=== PATIENT | female | born 1975 | race Asian ===

== ENCOUNTER 2017-10-05 20:24 | Emergency (ER) | payer SELFPAY ==
[~2017-10-05] VITALS: Ht 162.6 cm; Wt 56.7 kg
[2017-10-05] MEDS ORDERED: BIRTH CONTROL (20:37)
[2017-10-05 21:03] LABS: BASOPHILS ABSOLUTE AUTO 0.16 K/mm3 (0.00-0.23); BASOPHILS PERCENT AUTO 2 % (0-2); EOSINOPHILS ABSOLUTE AUTO 0.31 K/mm3 (0.00-0.68); EOSINOPHILS PERCENT AUTO 3 % (0-6); Hematocrit 38.8 % (33.0-51.0); Hemoglobin 13.2 g/dL (11.5-16.0); IMMATURE GRAN ABSOLUTE AUTO 0.03 K/mm3 (0.00-0.10); IMMATURE GRAN PERCENT AUTO 0 % (0-1); LYMPHOCYTES ABSOLUTE AUTO 2.03 K/mm3 (0.84-5.20); LYMPHOCYTES PERCENT AUTO 21 % (21-46); MONOCYTES ABSOLUTE AUTO 0.36 K/mm3 (0.16-1.47); MONOCYTES PERCENT AUTO 4 % (4-13); Mean Corpuscular HGB 28.4 pg (26.0-34.0); Mean Corpuscular Volume 84 fL (80-100); NEUTROPHILS ABSOLUTE AUTO 7.02 K/mm3 (1.96-9.15); NEUTROPHILS PERCENT AUTO 71 % (41-73); Platelet Count 288 K/mm3 (150-400); RDW Coefficient Variation 13.1 % (11.7-14.2); RDW Standard Deviation 39.8 fL (35.1-46.3); Red Blood Cell Count 4.64 M/mm3 (3.80-5.20); White Blood Cell Count 9.91 K/mm3 (4.00-11.30)
[2017-10-05 21:26] LABS: Alanine Aminotransfer (ALT/SGP 23 U/L (12-78); Albumin, Blood 3.8 g/dL (3.4-5.0); Alk Phos 64 U/L (50-136); Anion Gap 9 mmol/L (6-16); Aspartate Aminotrans (AST/SGOT 22 U/L (12-37); Bilirubin, Total 0.2 mg/dL (0.1-1.0); Blood Urea Nitrogen 16 mg/dL (8-24); Bun/Creatinine Ratio 28.9 (12.0-20.0); CO2, Blood 24 mmol/L (21-32); Calcium, Blood 8.4 mg/dL (8.5-10.1); Chloride, Blood 109 mmol/L (98-108); Creatinine, Blood 0.55 mg/dL (0.40-1.00); Free Thyroxine 1.04 ng/dL (0.70-1.60); Globulin, Blood 3.8 g/dL (2.2-4.0); Glomerular Filtration Rate >60 (60-); Glucose, Blood 140 mg/dL (70-99); Potassium, Blood 3.3 mmol/L (3.5-5.5); Sodium, Blood 142 mmol/L (136-145); Total Protein, Blood 7.6 g/dL (6.4-8.2); Troponin I <0.015 ng/mL (0.000-0.040)
[2017-10-05 21:29] LABS: Thyroid Stimulating Hormone 0.939 uIU/mL (0.360-4.800); Triiodothyronine, Free 3.08 pg/mL (2.18-3.98)
== END 2017-10-05 22:30 | disposition home or self-care (01) ==
LOC: ER 20:24
PROVIDERS: Emergency Medicine
DX: R00.2 Palpitations (principal); Z88.6 Allergy status to analgesic agent; Z88.1 Allergy status to other antibiotic agents; Z88.8 Allergy status to other drugs, medicaments and biological substances
CPT/HCPCS: 36415; 71046; 80053; 84439; 84443; 84481; 84484; 85025; 85379; 93005; 93010; 99284

== ENCOUNTER 2018-09-21 14:50 | Emergency (ER) | payer OTHER ==
[~2018-09-21 14:50] MED LIST: BIRTH CONTROL
[2018-09-21] MEDS ORDERED: ATEN25 PO (17:15)
[2018-09-21] MEDS ORDERED: Vitamin D2000 UNIT PO (17:15)
[2018-09-21] MEDS ORDERED: EXPECTA PRENAT1 EACH (17:15)
== END 2018-09-21 15:09 | disposition left against medical advice (07) ==
LOC: ER 14:50
DX: Z53.21 Procedure and treatment not carried out due to patient leaving prior to being seen by health care provider (principal)

== ENCOUNTER 2018-09-21 16:23 | Observation (INO) | payer OTHER ==
[~2018-09-21] VITALS: Ht 162.6 cm; Wt 57.7 kg
[2018-09-21] MEDS ORDERED: ATEN25 PO (17:15)
[2018-09-21] MEDS ORDERED: Vitamin D2000 UNIT PO (17:15)
[2018-09-21] MEDS ORDERED: EXPECTA PRENAT1 EACH (17:15)
[2018-09-21 17:24] LABS: BASOPHILS ABSOLUTE AUTO 0.11 K/mm3 (0.00-0.23); BASOPHILS PERCENT AUTO 1 % (0-2); EOSINOPHILS ABSOLUTE AUTO 0.08 K/mm3 (0.00-0.68); EOSINOPHILS PERCENT AUTO 1 % (0-6); Hematocrit 36.7 % (33.0-51.0); Hemoglobin 12.4 g/dL (11.5-16.0); IMMATURE GRAN ABSOLUTE AUTO 0.07 K/mm3 (0.00-0.10); IMMATURE GRAN PERCENT AUTO 1 % (0-1); LYMPHOCYTES ABSOLUTE AUTO 1.28 K/mm3 (0.84-5.20); LYMPHOCYTES PERCENT AUTO 9 % (21-46); MONOCYTES ABSOLUTE AUTO 0.65 K/mm3 (0.16-1.47); MONOCYTES PERCENT AUTO 4 % (4-13); Mean Corpuscular HGB 28.8 pg (26.0-34.0); Mean Corpuscular HGB Conc 33.8 g/dL (31.5-36.5); Mean Corpuscular Volume 85 fL (80-100); Mean Platelet Volume 11.8 fL (9.1-12.4); NEUTROPHILS ABSOLUTE AUTO 12.88 K/mm3 (1.96-9.15); NEUTROPHILS PERCENT AUTO 86 % (41-73); Platelet Count 241 K/mm3 (150-400); RDW Coefficient Variation 13.7 % (11.7-14.2); RDW Standard Deviation 42.3 fL (35.1-46.3); White Blood Cell Count 15.07 K/mm3 (4.00-11.30)
--- NOTE | 2018-09-21 19:39 | NUR ---
FHT DOPPLERED AT 150, FETUS ACTIVE AND MOVEMENTS AUSCULTATED VIA DOPPLER. PT STATES BEING ABLE TO FEEL FETUS MOVE. PT STATES THAT ABDOMEN IS TENDER AT TIMES WITH CRAMPING, AWARE TO CALL RN WITH ANY CHANGES, INCREASED BLEEDING OR QUESTIONS.
--- NOTE | 2018-09-21 21:30 | NUR ---
Pt sleeping, regular respiration at 14.
--- NOTE | 2018-09-22 00:01 | NUR ---
PT STATES THAT HER CARMPING HAS INCREASED SOME BUT NOT BAD BEFORE. WILL LEAVE URINE AND PADS IN BATHROOM FOR RN TO ASSESS, DENIES INCREASE IN BLEEDING. UNDERSTANDS TO CALL WITH ANY CHANGES OR CONCERNS.
--- NOTE | 2018-09-22 07:58 | NUR ---
SMALL DIME SIZED CLOT PASSED DURING VOID
--- NOTE | 2018-09-22 11:30 | NUR ---
PT SLEEPING, DOES NOT WAKE UP WITH RN ENTRANCE INTO ROOM. LUNCH TRY PLACED ON BEDSIDE TABLE.
--- NOTE | 2018-09-22 13:04 | NUR ---
PT UP TO BATHROOM, HAD BOWEL MOVEMENT, NO VOID. STATES NO NEW BLEEDING. DENIES ANY CRAMPING. GOING TO TRY AND SLEEP SOME MORE, WILL CALL RN WHEN UP TO VOID FOR OUTPUT, IF ANY BLEEDING OR CRAMPING AND PRN.
--- NOTE | 2018-09-22 16:39 | NUR ---
MINIMAL AMOUNT OF BLEEDING NOTED. PATIENT STATES MUCH LESS THAN YESTERDAY.
--- NOTE | 2018-09-22 17:05 | NUR ---
PT IN BED EATING DINNER, STATES SHE IS FEELING MUCH BETTER AFTER TYLENOL AND BLEEDING HAS LESSENED TO A PINK TINGE WHEN WIPING. HAS NO COMPLAINTS AT THIS TIME.
--- NOTE | 2018-09-23 07:45 | NUR ---
Pt sleeping soundly.
--- NOTE | 2018-09-23 08:32 | NUR ---
Pt remains asleep, woke when RN entered room. Will check back shortly to see if pt awake.
[2018-09-23] MEDS ORDERED: Percocet 5-3251 EACH PO (10:34)
--- NOTE | 2018-09-23 10:44 | NUR ---
Pt reports she got up to br and to get dressed to d/c home and passed a red clot the size of her thumbnail and had some bloody mucus when she wiped. CNM notified and discharge to be delayed until after 1300.
--- NOTE | 2018-09-23 12:56 | NUR ---
CNM updated about pink tinged urine. Ok to d/c home.
--- NOTE | 2018-09-23 13:15 | NUR ---
No acute changes this shift. IV d/c'd. Printed instructions reviewed w/pt and . Deny questions/concerns. Pt d/c'd home in wheelchair to care of .
== END 2018-09-23 13:15 | disposition home or self-care (01) ==
LOC: OBS 16:23 → BC 16:39
PROVIDERS: ADMIT Nurse Practitioner Obstetrics & Gynecology
DX: O46.92 Antepartum hemorrhage, unspecified, second trimester (principal); Z3A.15 15 weeks gestation of pregnancy; O09.522 Supervision of elderly multigravida, second trimester; O09.812 Supervision of pregnancy resulting from assisted reproductive technology, second trimester; O99.012 Anemia complicating pregnancy, second trimester; D64.9 Anemia, unspecified; O99.282 Endocrine, nutritional and metabolic diseases complicating pregnancy, second trimester; E55.9 Vitamin D deficiency, unspecified; I49.1 Atrial premature depolarization; O99.412 Diseases of the circulatory system complicating pregnancy, second trimester; Z79.899 Other long term (current) drug therapy; Z88.1 Allergy status to other antibiotic agents; Z88.8 Allergy status to other drugs, medicaments and biological substances
CPT/HCPCS: 85025; 86850; 86900; 86901; G0378

== ENCOUNTER 2019-03-03 05:11 | Inpatient (IN) | payer OTHER ==
[~2019-03-03] VITALS: Ht 152.4 cm; Wt 61.8 kg
[~2019-03-03 05:11] MED LIST changes: +ATEN25 PO; +EXPECTA PRENAT1 EACH; +Percocet 5-3251 EACH PO; +Vitamin D2000 UNIT PO
[2019-03-03 05:39] LABS: BASOPHILS ABSOLUTE AUTO 0.13 K/mm3 (0.00-0.23); BASOPHILS PERCENT AUTO 2 % (0-2); EOSINOPHILS ABSOLUTE AUTO 0.11 K/mm3 (0.00-0.68); EOSINOPHILS PERCENT AUTO 1 % (0-6); Hematocrit 37.1 % (33.0-51.0); Hemoglobin 12.4 g/dL (11.5-16.0); IMMATURE GRAN ABSOLUTE AUTO 0.07 K/mm3 (0.00-0.10); IMMATURE GRAN PERCENT AUTO 1 % (0-1); LYMPHOCYTES ABSOLUTE AUTO 2.63 K/mm3 (0.84-5.20); LYMPHOCYTES PERCENT AUTO 32 % (21-46); MONOCYTES ABSOLUTE AUTO 0.45 K/mm3 (0.16-1.47); MONOCYTES PERCENT AUTO 5 % (4-13); Mean Corpuscular HGB Conc 33.4 g/dL (31.5-36.5); Mean Corpuscular Volume 81 fL (80-100); NEUTROPHILS PERCENT AUTO 59 % (41-73); NRBC ABSOLUTE 0.03 K/mm3 (0.00-0.02); NRBC Auto 0.4 /100 WBC (0.0-0.2); Platelet Count 195 K/mm3 (150-400); RDW Coefficient Variation 16.1 % (11.7-14.2); RDW Standard Deviation 45.6 fL (35.1-46.3); Red Blood Cell Count 4.59 M/mm3 (3.80-5.20); White Blood Cell Count 8.29 K/mm3 (4.00-11.30)
--- NOTE | 2019-03-03 09:55 | NUR ---
talha requests pastoral care come down to pray with them. obt susan epperson to call pastoral care
--- NOTE | 2019-03-03 10:06 | NUR ---
Prayer and blessing provided to paul at her request.
[2019-03-04 05:41] LABS: BASOPHILS ABSOLUTE AUTO 0.13 K/mm3 (0.00-0.23); BASOPHILS PERCENT AUTO 1 % (0-2); EOSINOPHILS ABSOLUTE AUTO 0.07 K/mm3 (0.00-0.68); EOSINOPHILS PERCENT AUTO 1 % (0-6); Hematocrit 38.5 % (33.0-51.0); Hemoglobin 12.5 g/dL (11.5-16.0); IMMATURE GRAN ABSOLUTE AUTO 0.09 K/mm3 (0.00-0.10); IMMATURE GRAN PERCENT AUTO 1 % (0-1); LYMPHOCYTES ABSOLUTE AUTO 2.06 K/mm3 (0.84-5.20); LYMPHOCYTES PERCENT AUTO 15 % (21-46); MONOCYTES ABSOLUTE AUTO 0.44 K/mm3 (0.16-1.47); MONOCYTES PERCENT AUTO 3 % (4-13); Mean Corpuscular HGB 27.5 pg (26.0-34.0); Mean Corpuscular HGB Conc 32.5 g/dL (31.5-36.5); NEUTROPHILS ABSOLUTE AUTO 10.75 K/mm3 (1.96-9.15); NEUTROPHILS PERCENT AUTO 79 % (41-73); Platelet Count 178 K/mm3 (150-400); RDW Coefficient Variation 16.4 % (11.7-14.2); RDW Standard Deviation 48.6 fL (35.1-46.3); Red Blood Cell Count 4.54 M/mm3 (3.80-5.20); White Blood Cell Count 13.54 K/mm3 (4.00-11.30)
[2019-03-04 06:13] LABS: Mean Corpuscular Volume 85 fL (80-100); Mean Platelet Volume 12.9 fL (9.1-12.4)
[2019-03-04] MEDS ORDERED: IBUP800 PO (10:11)
== END 2019-03-04 17:29 | disposition home or self-care (01) | DRG 807 ==
LOC: BC 05:11
PROVIDERS: ADMIT Nurse Practitioner Obstetrics & Gynecology
PROC: 10E0XZZ Delivery of Products of Conception, External Approach (ICD-10-PCS; principal; 2019-03-03)
PROC: 3E0S3BZ Introduction of Anesthetic Agent into Epidural Space, Percutaneous Approach (ICD-10-PCS; 2019-03-03)
PROC: 00HU33Z Insertion of Infusion Device into Spinal Canal, Percutaneous Approach (ICD-10-PCS; 2019-03-03)
DX: O43.123 Velamentous insertion of umbilical cord, third trimester (principal); Z37.0 Single live birth; Z3A.39 39 weeks gestation of pregnancy
CPT/HCPCS: 36415; 51702; 85025; J1885; J2001; J2590; J3010; J7120

== ENCOUNTER → 2019-03-06 | Outpatient (CLI) | payer OTHER ==
[~2019-03-06] MED LIST changes: +IBUP800 PO
== END | disposition home or self-care (01) ==
LOC: LAB 14:34 → LAB SHORT 14:34
DX: R30.0 Dysuria (principal)
CPT/HCPCS: 87077; 87086; 87186

== ENCOUNTER → 2022-02-09 | Outpatient (CLI) | payer OTHER ==
[~2022-02-09] MED LIST changes: +CEPH500 PO; +HYDMOR2 PO; +PROM25 PO
== END | disposition home or self-care (01) ==
LOC: LAB 16:00 → LAB SHORT 16:00
DX: M54.50 Low back pain, unspecified (principal)
CPT/HCPCS: 87086

== ENCOUNTER 2022-02-12 19:37 | Inpatient (IN) | payer OTHER ==
[~2022-02-12] VITALS: Ht 162.6 cm; Wt 57.6 kg
[~2022-02-12 19:37] MED LIST changes: -CEPH500 PO; -HYDMOR2 PO; -PROM25 PO
[2022-02-12 20:40] LABS: Source, Urine Clean Catch
[2022-02-12 20:43] LABS: BASOPHILS ABSOLUTE AUTO 0.09 K/mm3 (0.00-0.23); BASOPHILS PERCENT AUTO 1 % (0-2); EOSINOPHILS ABSOLUTE AUTO 0.11 K/mm3 (0.00-0.68); EOSINOPHILS PERCENT AUTO 1 % (0-6); Hematocrit 36.6 % (33.0-51.0); Hemoglobin 12.5 g/dL (11.5-16.0); IMMATURE GRAN ABSOLUTE AUTO 0.11 K/mm3 (0.00-0.10); IMMATURE GRAN PERCENT AUTO 1 % (0-1); LYMPHOCYTES ABSOLUTE AUTO 1.26 K/mm3 (0.84-5.20); LYMPHOCYTES PERCENT AUTO 7 % (21-46); MONOCYTES ABSOLUTE AUTO 0.96 K/mm3 (0.16-1.47); MONOCYTES PERCENT AUTO 6 % (4-13); Mean Corpuscular HGB 29.1 pg (26.0-34.0); Mean Corpuscular HGB Conc 34.2 g/dL (31.5-36.5); Mean Corpuscular Volume 85 fL (80-100); Mean Platelet Volume 9.9 fL (9.1-12.4); NEUTROPHILS ABSOLUTE AUTO 14.59 K/mm3 (1.96-9.15); NEUTROPHILS PERCENT AUTO 85 % (41-73); Platelet Count 481 K/mm3 (150-400); RDW Coefficient Variation 13.4 % (11.7-14.2); RDW Standard Deviation 41.8 fL (35.1-46.3); White Blood Cell Count 17.12 K/mm3 (4.00-11.30)
[2022-02-12 20:44] LABS: Blood, Urine 2+ (Neg); Glucose Qualitative, Urine Neg (Neg); Ketones, Urine 1+ (Neg); Leukocyte Esterase, Urine Neg (Neg); Nitrite, Urine Neg (Neg); Protein, Urine 2+ (Neg); Specific Gravity, Urine 1.025 (1.003-1.022); Urobilinogen, Urine 3+ (Normal)
[2022-02-12 20:49] LABS: Appearance, Urine Hazy (Clear); Bilirubin, Urine 1+ (Neg); Color, Urine Yellow (P-Yellow)
[2022-02-12 20:51] LABS: Amorphous Light (0-Heavy); Bacteria Few /hpf; Hyaline Casts 0-2 /lpf (0-2); Mucus Mod (0-Heavy); Squamous Epithelial Cells Few /hpf (Few); White Blood Cells, Urine 0-2 /hpf (0-5)
[2022-02-12 21:02] LABS: Albumin, Blood 2.7 g/dL (3.4-5.0); Albumin/Globulin Ratio 0.6 (0.8-1.8); Bilirubin, Total 0.3 mg/dL (0.1-1.0); Bun/Creatinine Ratio 17.3 (12.0-20.0); Calcium, Blood 9.2 mg/dL (8.5-10.1); Creatinine, Blood 0.58 mg/dL (0.40-1.00); Globulin, Blood 4.8 g/dL (2.2-4.0); Total Protein, Blood 7.5 g/dL (6.4-8.2)
--- NOTE | 2022-02-13 06:09 | NUR ---
PT ARRIVED TO THE FLOOR AT APPROX 0450. A/O X4, SPOUSE AT BEDSIDE. RN STATED THAT SHE HAD GIVEN PT PAIN MEDICATION AT APPROX 0340, PT REPORTS PAIN AT A 4 AT THIS TIME. ORIENTED TO ROOM AND CALL LIGHT. ADMIT COMPLETE. BLOOD CONSENT SIGNED, AND COVID SWAB DONE. VITAL SIGNS TAKEN. WILL CONTINUE TO MONITOR AND REPORT TO ONCOMING RN.
[2022-02-13 06:41] LABS: SARS-Cov-2 (COVID-19) PCR, MMC NEGATIVE (NEGATIVE)
--- NOTE | 2022-02-13 13:03 | NUR ---
WONDERSISI AT BEDSIDE
--- NOTE | 2022-02-13 16:14 | NUR ---
02/13/22 1614 Raheem Georges PT TO PACU WITH PASCUAL IN PLACE PER . APPROX 100CC CLEAR YELLOW URINE IN BAG UPON TRANSFER
--- NOTE | 2022-02-13 17:57 | NUR ---
POST OP: REPORT RECEIVED FROM DEALER SUPPORT TECHNICIAN KIM. PT TO UNIT AT 1720. PT IS ORIENTED AND DROWSY. AWAKENS TO VOICE AND VERBALIZED ABD PAIN, MEDICATED PER EMAR. SURGICAL SITES ARE CDI, WNL. PT BEDSIDE. WILL CTM AND REPORT TO NOC NICOLE
--- NOTE | 2022-02-14 04:22 | NUR ---
SHIFT SUMMARY PATIENT S/P EX LAP. ABD LAP SITES X3, OPEN TO AIR WITH DERMABOND, C/D/I. PATIENT HAS MILD DISTENTION AND TENDERNESS IN ABD. SCANT AMOUNT OF BLOOD ON MADHAVI PAD. PASCUAL WAS REMOVED THIS AM. TOLERATING PO INTAKE AND DENIES N/V. DENIES PASSING GAS THIS SHIFT. PAIN MANAGED WITH 1MG DILAUDED. RESTING COMFORTABLY AT THIS TIME.VSS, CALL LIGHT IN REACH. REPORT TO DAY RN.
[2022-02-14 04:42] LABS: BASOPHILS ABSOLUTE AUTO 0.03 K/mm3 (0.00-0.23); BASOPHILS PERCENT AUTO 0 % (0-2); EOSINOPHILS PERCENT AUTO 0 % (0-6); Hematocrit 31.4 % (33.0-51.0); Hemoglobin 10.7 g/dL (11.5-16.0); IMMATURE GRAN PERCENT AUTO 1 % (0-1); LYMPHOCYTES ABSOLUTE AUTO 0.67 K/mm3 (0.84-5.20); LYMPHOCYTES PERCENT AUTO 4 % (21-46); MONOCYTES ABSOLUTE AUTO 0.74 K/mm3 (0.16-1.47); MONOCYTES PERCENT AUTO 4 % (4-13); Mean Corpuscular HGB 29.2 pg (26.0-34.0); Mean Corpuscular HGB Conc 34.1 g/dL (31.5-36.5); Mean Corpuscular Volume 86 fL (80-100); Mean Platelet Volume 9.5 fL (9.1-12.4); NEUTROPHILS ABSOLUTE AUTO 16.72 K/mm3 (1.96-9.15); NEUTROPHILS PERCENT AUTO 91 % (41-73); Platelet Count 443 K/mm3 (150-400); RDW Coefficient Variation 13.2 % (11.7-14.2); RDW Standard Deviation 41.7 fL (35.1-46.3); Red Blood Cell Count 3.66 M/mm3 (3.80-5.20); White Blood Cell Count 18.36 K/mm3 (4.00-11.30)
[2022-02-14 05:15] LABS: Calcium, Blood 8.4 mg/dL (8.5-10.1); Creatinine, Blood 0.36 mg/dL (0.40-1.00); Potassium, Blood 3.6 mmol/L (3.5-5.5)
--- NOTE | 2022-02-14 14:05 | NUR ---
PRESCRIPTIONS SENT WITH SPOUSE AT THIS TIME. PLANS TO STATION WORKER PRIOR TO DISCHARGE
[2022-02-14] MEDS ORDERED: HYDMOR2 PO (14:06)
[2022-02-14] MEDS ORDERED: CEPH500 PO (14:07)
[2022-02-14] MEDS ORDERED: PROM25 PO (14:07)
--- NOTE | 2022-02-14 14:37 | NUR ---
DISCHARGE DISCHARGE INSTRUCTIONS GONE OVER WITH PATIENT. PAIN WELL CONTROLLED PER EMAR AT THIS TIME. PRESCRIPTIONS SENT WITH SPOUSE TO BIOLOGY TEACHER PRIOR TO DISCHARGE. PATIENT HAS FOLLOW UP APPOINTMENT IN PLACE WITH DR. WITT IN [place] FOR FURTHER PROCEDURES. IV REMOVED. ALL BELONGINGS WITH PATIENT, CURRENTLY AWAITING SPOUSE TO RETURN AND WILL LEAVE BY WHEELCHAIR.
== END 2022-02-14 16:00 | disposition home or self-care (01) | DRG 983 ==
LOC: ER 19:37 → SURS 02-13 03:56
PROVIDERS: Physician Assistant; ADMIT Obstetrics & Gynecology
PROC: 0W9J4ZZ Drainage of Pelvic Cavity, Percutaneous Endoscopic Approach (ICD-10-PCS; principal; 2022-02-13 15:00)
DX: N83.8 Other noninflammatory disorders of ovary, fallopian tube and broad ligament (principal); N85.8 Other specified noninflammatory disorders of uterus; Z79.899 Other long term (current) drug therapy; Z98.51 Tubal ligation status
CPT/HCPCS: 36415; 74177; 76705; 80048; 80053; 81001; 81025; 85025; 86304; 87070; 87075; 87205; 93005; 93010; 96365-59; 96366; 96367; 96375; 96376; 99285-25; A9270; J0690; J1100; J1170; J1885; J2250; J2405; J2543; J2704; J2795; J3010; J3480; J7030; J7120; Q9967; U0004

== ENCOUNTER → 2022-07-16 | Outpatient (CLI) | payer OTHER ==
[~2022-07-16] MED LIST changes: +CEPH500 PO; +HYDMOR2 PO; +PROM25 PO
== END | disposition home or self-care (01) ==
LOC: LAB 15:08 → LAB SHORT 15:08
DX: R30.0 Dysuria (principal); R31.0 Gross hematuria; R10.9 Unspecified abdominal pain
CPT/HCPCS: 87086